=== PATIENT | female | born 1995 | race Caucasian/White ===

== ENCOUNTER → 2024-03-19 06:50 | Outpatient (REF) | payer OTHER, SELFPAY | LOC: PNTC 06:50 | PROVIDERS: ATTENDING PHYSICIAN Obstetrics & Gynecology | DX: Z34.02 Encounter for supervision of normal first pregnancy, second trimester (principal) | CPT/HCPCS: 76805 ==

== ENCOUNTER → 2024-04-10 13:41 | Outpatient (REF) | payer OTHER, SELFPAY | LOC: PNTC 13:41 | PROVIDERS: ATTENDING PHYSICIAN Obstetrics & Gynecology | DX: Z34.90 Encounter for supervision of normal pregnancy, unspecified, unspecified trimester (principal) | CPT/HCPCS: 76815 ==

== ENCOUNTER 2024-07-31 15:56 | Inpatient (IN) | payer OTHER, SELFPAY ==
[2024-07-31 16:02] VITALS: BP 143/82; BMI 33.9
[2024-07-31] MEDS: LR 1000 IV ×2 (16:44→20:47)
[2024-07-31 16:50] LABS: % Basophils 0.1 % (0-2); % Eosinophils 0.1 % (0-6); % Immature Granulocytes 0.4 % (0-0.5); % Lymphocytes 11.8 % (20.5-51.1); % Monocytes 3.4 % (1.7-9.3); % Neutrophils 84.2 % (42.2-75.2); Absolute Lymphocytes 1.3 10^3/uL (1.2-3.4); Absolute Monocytes 0.4 10^3/uL (0.1-0.6); Absolute Neutrophils 9.3 10^3/uL (1.4-6.5); Hematocrit 35.7 % (37.0-47.0); Hemoglobin 13.1 g/dL (12.0-16.0); Mean Corp Hgb Conc. 36.7 g/dL (33.0-37.0); Mean Corpuscular Hgb 34.7 pg (27.0-31.0); Mean Corpuscular Volume 94.7 fL (81.0-99.0); Mean Platelet Volume 10.8 fL (7.4-10.4); Nucleated Red Blood Cells % 0 %; Platelet Count 206 10^3/uL (130-400); Red Blood Cell Count 3.77 10^6/uL (4.20-5.40)
[2024-07-31 17:14] LABS: ALT (SGPT) 19 U/L (0-35); AST (SGOT) 22 U/L (14-36); Albumin 3.9 g/dl (3.5-5.0); Alkaline Phosphatase 154 U/L (38-126); Blood Urea Nitrogen 7 mg/dl (7-17); Calcium 9.7 mg/dl (8.4-10.2); Carbon Dioxide 18 mmol/L (22-30); Chloride 109 mmol/L (98-107); Estimated Creatinine Clearance > 125 ml/min; Glucose 98 mg/dl (70-99); Potassium 4.1 mmol/L (3.5-5.1); Sodium 136 mmol/L (135-145); Total Bilirubin 0.6 mg/dl (0.2-1.3); Total Protein 6.9 g/dl (6.3-8.2); eGFR > 60.00
[2024-07-31] MEDS: STADOL 1 MG IV (17:53)
[2024-07-31] MEDS: SUBLIMAZE 100 MCG EPIDURAL (20:11)
[2024-07-31] MEDS: FENTANYL/BUPIVACAINE 100 EPIDURAL (20:12)
[2024-08-01] MEDS: FENTANYL/BUPIVACAINE 100 EPIDURAL ×2 (05:28→15:21)
[2024-08-01] MEDS: LR 1000 IV ×2 (05:30→19:21)
[2024-08-01] MEDS: PITOCIN 30 UNITS/NSS 500 ML IV (08:02)
[2024-08-01] MEDS: VALTREX 500 MG PO ×2 (09:38→21:19)
[2024-08-01] MEDS: TYLENOL 1000 MG PO (17:47)
[2024-08-01] MEDS: BICITRA 30 ML PO (21:40)
[2024-08-01] MEDS: ANCEF 10 IV (21:40)
[2024-08-01] MEDS: ZITHROMAX INFUSION 250 IV (21:41)
[2024-08-02] MEDS: TORADOL 15 MG IV ×4 (04:07→22:02)
[2024-08-02 04:32] LABS: Hematocrit 30.8 % (37.0-47.0); Hemoglobin 10.8 g/dL (12.0-16.0); Mean Corp Hgb Conc. 35.1 g/dL (33.0-37.0); Mean Corpuscular Hgb 33.5 pg (27.0-31.0); Mean Corpuscular Volume 95.7 fL (81.0-99.0); Mean Platelet Volume 10.7 fL (7.4-10.4); Platelet Count 153 10^3/uL (130-400); Red Blood Cell Count 3.22 10^6/uL (4.20-5.40); Red Cell Dist. Width 13.9 % (11.5-14.5); White Blood Cell Count 16.3 10^3/uL (4.8-10.8)
--- NOTE | 2024-08-02 07:39 | W.PN.ANS.POP ---
Anesthesia Post Operative
- Anesthesia Post Op Note
Vital Signs Stable-See Nursing Note: Yes
Airway Patent: Yes
Adequate Pain Control: Yes
Change in Mental Status: No
Current Postoperative Nausea & Vomiting: No
Anesthesia Complications: No
General Anesthetic Recall: No
Unplanned Admission: No
Post Op Hydration Adequate: Yes
[2024-08-02] MEDS: PRENATAL PLUS 1 TABLET PO (07:56)
[2024-08-02 14:00] LABS: Syphilis/T. pallidum Ab Reflex Negative (Negative)
[2024-08-03] MEDS: TYLENOL 650 MG PO ×4 (04:31→20:07)
[2024-08-03] MEDS: PRENATAL PLUS PO (17:04)
[2024-08-03] MEDS: MOTRIN 600 MG PO (20:03)
[2024-08-04] MEDS: TYLENOL 650 MG PO ×2 (02:02→08:16)
[2024-08-04] MEDS: MOTRIN 600 MG PO ×2 (02:03→08:16)
[2024-08-04] MEDS: PRENATAL PLUS 1 TABLET PO (08:16)
--- NOTE | 2024-08-04 09:00 | W.DS.TRANS ---
DC Summary - Chief Nurse
-
Discharge Instructions:
Discharge Diagnosis/Procedures delivered via section
Diet No restrictions
Activity No strenuous activity
Driving Restrictions No driving for 2 weeks
Bathing Restrictions OK to Shower
Instructions:
Stand-Alone Forms: [facility] Delivery
Changes to Home Medications: No
Discharge Medications:
DC Medications w/original date entered in Outcome Referrals
prenat.vits,kristen,wpb-fxan-tqxzi 1 tab PO 1XD 07/31/24
acetaminophen 325 mg tablet 650 mg (2 x 325 mg) PO Q4HPRN PRN mild pain #1 tab 08/03/24
ibuprofen 600 mg tablet 600 mg PO Q6HPRN PRN cramps #60 tabs 08/03/24
Home Medication Changes
Pending Results: No
--- NOTE | 2024-08-04 09:01 | W.DCSUMMARY ---
Discharge Summary
Discharge Data
Date of Admission: 07/31/24
Date of Discharge: 08/04/24
-
Pending Results: No
Hospital Course
Patient is a 28yo who presented to Labor and Delivery on 07/31 at 40.5 weeks with complaints of contractions. She was 2+/80/-2. She was managed expectantly. On 08/01 at 1245, she progressed to 8-9cm and membranes were artificially ruptured for
meconium stained amniotic fluid. At 1815, she was found to be complete and started pushing. After 3.5 hours, she had made minimal descent of the head and primary section was recommended for arrest of descent. She underwent primary low
transverse section delivering a viable male . The qualitative blood loss was 800mL. The procedure was uncomplicated. There was a nuchal cord times 2. On postop day one, she was doing well with no complaints. Her hemoglobin was 10.8.
On postop day two, she was recovering well and had no complaints. On postop day three, she was meeting all postop milestones. She was tolerating a regular diet, voiding spontaneously, had no heavy lochia, ambulating, passing flatus and pain was well
controlled. She was discharged home with discharge instructions and return precautions. She was instructed to follow up in 2 weeks for an incision check.
Discharge Plan
-
Patient Disposition: Home (Routine Discharge)
Discharge Diagnosis/Procedures: delivered via section
Condition: Good
Diet: No restrictions
Activity: No strenuous activity
Driving Restrictions: No driving for 2 weeks
Bathing Restrictions: OK to Shower
Stand Alone Forms: [facility] Delivery
Referrals:
Malu Gilbert, DO [Active, Gynecology] - in two weeks
UNKNOWN - PT NOT,INTERVIEWE [Family Provider]
Prescriptions:
New
acetaminophen 325 mg Tablet
650 mg PO Q4HPRN PRN (Reason: mild pain) Qty: 1 0RF
ibuprofen 600 mg Tablet
600 mg PO Q6HPRN PRN (Reason: cramps) Qty: 60 0RF
Continued
prenat.vits,kristen,rup-oxjk-lquct Tablet
1 tab PO 1XD
Discontinued
valacyclovir [Valtrex] 500 mg Tablet
500 mg PO BID
Discharge Orders:
Discharge Patient (As Directed); Ordered 08/04/24
Ordered By: Lenore Wood
Discharge Date and Time
Print Language: MONGOLIAN
== END 2024-08-04 11:18 | disposition home or self-care (01) | DRG 787 ==
LOC: LDRP 15:56
PROVIDERS: Obstetrics & Gynecology; Student in an Organized Health Care Education/Training Program; ADMITTING PHYSICIAN Obstetrics & Gynecology
PROC: 10907ZC Drainage of Amniotic Fluid, Therapeutic from Products of Conception, Via Natural or Artificial Opening (ICD-10-PCS; 2024-08-01)
PROC: 10D00Z1 Extraction of Products of Conception, Low, Open Approach (ICD-10-PCS; 2024-08-02)
DX: O48.0 Post-term pregnancy (principal); O98.32 Other infections with a predominantly sexual mode of transmission complicating childbirth; Z3A.40 40 weeks gestation of pregnancy; Z37.0 Single live birth; A60.00 Herpesviral infection of urogenital system, unspecified; Z80.0 Family history of malignant neoplasm of digestive organs; Z80.3 Family history of malignant neoplasm of breast; O77.0 Labor and delivery complicated by meconium in amniotic fluid; O62.1 Secondary uterine inertia; R50.9 Fever, unspecified; O69.81X0 Labor and delivery complicated by cord around neck, without compression, not applicable or unspecified
CPT/HCPCS: 88307; 36415; 80053; 85025; 85027; 86780; 86850; 86900; 86901